=== PATIENT | male | born 1990 | race Caucasian/White ===

== ENCOUNTER 2023-08-15 09:55 | Emergency (ER) | payer MEDICAID ==
[~2023-08-15] VITALS: Ht 172.7 cm; Wt 96.9 kg
[~2023-08-15 09:55] MED LIST: IBUP200C3
[2023-08-15 11:49] VITALS: BP 142/83; PULSE 91; RESP 18; TEMP 98.8; O2SAT 100
[2023-08-15] MEDS ORDERED: LIDO2SOL26 MT (12:23)
[2023-08-15] MEDS ORDERED: NAPR-957 PO (12:23)
[2023-08-15] MEDS ORDERED: PENI500T2 PO (12:23)
[2023-08-15] MEDS ORDERED: DexAMETHasone SOD PHOS 10MG/1ML VIAL INJ IM ONE (12:30)
[2023-08-15] MEDS ORDERED: KETOROLAC TROMETH 60MG/2ML VIAL IM ONE (12:30)
[2023-08-15] MEDS ORDERED: cefTRIAXone SOD 500 MG VL IM ONE (12:30)
== END 2023-08-15 12:23 | disposition home or self-care (01) ==
LOC: ER 09:55
DX: J03.90 Acute tonsillitis, unspecified (principal)
CPT/HCPCS: 96372; 99284; J0696; J1100; J1885